=== PATIENT | female | born 1955 | race Caucasian/White ===

== ENCOUNTER 2017-08-27 08:09 | Outpatient (CLI) | payer BC | END 2017-08-27 08:10 | disposition home or self-care (01) | LOC: BICMAMMO 08:09 | PROVIDERS: ATTEND Internal Medicine | DX: Z13.820 Encounter for screening for osteoporosis (principal) | CPT/HCPCS: 77080 ==

== ENCOUNTER 2018-09-16 07:51 | Outpatient (CLI) | payer BC ==
--- NOTE | 2018-09-16 09:00 | BD ---
DEXA BONE DENSITY STUDY: HISTORY: Menopausal screening. FINDINGS: LUMBAR SPINE BMD (g/cm2) T-SCORE L1 0.723 -2.4 L2 0.704 -2.9 L3 0.795 -2.6 L4 0.689 -3.4 TOTAL 0.727 -2.9 Evidence for osteoporosis with high risk for fracture. Bone mineral density has decreased from prior exam, 08/27/2017, at which time the overall T-score was -2.3. LEFT FEMUR BMD T-SCORE FEMORAL NECK 0.741 -1.0 TOTAL 0.862 -0.7 Within normal limits with no increased risk for fracture. Bone mineral density has slightly decrease d when compared to the prior study of 08/27/2017, at which time the total T-score was 0.1. POS: [facility]
== END 2018-09-16 07:52 | disposition home or self-care (01) ==
LOC: BICMAMMO 07:51
PROVIDERS: ATTEND Internal Medicine
DX: M85.89 Other specified disorders of bone density and structure, multiple sites (principal); M81.0 Age-related osteoporosis without current pathological fracture
CPT/HCPCS: 77080

== ENCOUNTER 2021-04-18 14:54 | Outpatient (CLI) | payer MEDICARE, BC | END 2021-04-18 14:55 | disposition home or self-care (01) | LOC: BICMAMMO 14:54 | PROVIDERS: ATTEND Internal Medicine | DX: Z12.31 Encounter for screening mammogram for malignant neoplasm of breast (principal) | CPT/HCPCS: 77063; 77067 ==

== ENCOUNTER 2022-06-22 15:03 | Outpatient (CLI) | payer MEDICARE, BC | END 2022-06-22 15:04 | disposition home or self-care (01) | LOC: BICMAMMO 15:03 | PROVIDERS: ATTEND Internal Medicine | DX: Z12.31 Encounter for screening mammogram for malignant neoplasm of breast (principal); M81.0 Age-related osteoporosis without current pathological fracture; M85.852 Other specified disorders of bone density and structure, left thigh; M85.851 Other specified disorders of bone density and structure, right thigh | CPT/HCPCS: 77063; 77067; 77080 ==